=== PATIENT | female | born 1960 | race African-American/Black ===

== ENCOUNTER 2016-06-24 08:18 | Emergency (ER) | payer MEDICAID ==
[~2016-06-24] VITALS: Ht 157.5 cm; Wt 104.3 kg
[~2016-06-24 08:18] MED LIST: ALBUTEROL SULF8.5 GM INH; ANTIVERT25 MG ORAL; ASPIRIN EC81 MG ORAL; ASPIRIN325 MG ORAL; ATIVAN0.5 MG ORAL; AUGMENTIN 875-1 EAC1 ORAL; AZITHROMYCIN250 MG ORAL; CLARITIN-D 121 EAC1 ORAL; COLACE100 MG ORAL; CYCLOBENZAPRINE10 MG ORAL; DICLOFENAC SODI75 MG ORAL; IBUPROFEN600 MG ORAL; NAPROSYN250 M1 ORAL; NORCO 5-325 TA1 EACH ORAL; PERCOCET1 TAB ORAL; PREDNISONE20 M1 PO; PREDNISONE5 MG ORAL; VICODIN 5-3001 EACH ORAL
[2016-06-24] MEDS ORDERED: CEPHALEXIN500 MG ORAL (08:40)
--- NOTE | 2016-06-24 08:43 | Emergency Room Report ---
History of Present Illness General Chief Complaint: Flu Like Symptoms Source: Patient Present Illness HPI Patient is a 56-year-old female presented after having increased right-sided facial swelling and pain. The patient recently been sick with an upper respiratory infection and subsequently developed increased pain and swelling to the right side of her face anterior to her right ear. The patient had acute onset of symptoms Allergies: Coded Allergies: PROCHLORPERAZINE (Verified Allergy, Unknown, 08/04/14) Patient History Reviewed Nursing Documentation: PMH: Agreed, PSxH: Agreed Nursing Documentation-PMH Hx Asthma: Yes Hx Cancer: No Hx Gastrointestinal Problems: Yes - HEMMORROIDS Review of Systems All Other Systems: negative except mentioned in HPI Physical Exam Vital Signs Date Time Temp Pulse Resp B/P Pulse Ox O2 Delivery O2 Flow Rate FiO2 06/24/16 08:22 99.1 81 16 127/82 99 Room Air Sp02 EP Interpretation: reviewed, normal General Appearance: normal inspection, well appearing, no apparent distress, alert, GCS 15 Head: atraumatic ENT: normal ENT inspection, hearing grossly normal, normal voice, other - tenderness and swelling to right parotid gland, no lymphadenopathy noted Neck: normal inspection, full range of motion, supple, no bony tend Respiratory: normal inspection, lungs clear, normal breath sounds, no respiratory distress, no retraction, no wheezing Cardiovascular #1: regular rate, rhythm, no edema Gastrointestinal: normal inspection, normal bowel sounds, non tender, soft, no guarding, no hernia Genitourinary: no CVA tenderness Musculoskeletal: normal inspection, back normal, normal range of motion Neurologic: normal inspection, alert, oriented x3, responsive, 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 Differential diagnosis included was not limited to contusion, parotid gland infection, parotid gland stone, mumps, cellulitis among other. The patient is benign exam and appears to have parotitis. The patient was empirically started on Keflex. She was advised to followup in the next days with her doctor for recheck. Patient is advised to return if any worsening condition or if any changes in status that are concerning. Last Vital Signs Date Time Temp Pulse Resp B/P Pulse Ox O2 Delivery O2 Flow Rate FiO2 06/24/16 08:22 99.1 81 16 127/82 99 Room Air Status: improved Disposition: HOME, SELF-CARE Condition: Stable Scripts Cephalexin* (KEFLEX*) 500 Mg Capsule 500 MG ORAL EVERY 6 HOURS, #40 CAP Prov: Riccardo Phillips 06/24/16 Patient Instructions: Parotitis, [id number] Riccardo Phillips Jun 24, 2016 08:43
[2016-06-24 08:44] VITALS: BP 127/82
[2016-06-24] MEDS ORDERED: Cephalexin 500mg cap ORAL ONE (08:45)
[2016-06-24 08:50] VITALS: BP 127/82
== END 2016-06-24 08:54 | disposition home or self-care (01) ==
LOC: EMR 08:44
DX: K11.21 Acute sialoadenitis (principal); J45.909 Unspecified asthma, uncomplicated; Z88.8 Allergy status to other drugs, medicaments and biological substances
CPT/HCPCS: 99282

== ENCOUNTER 2016-11-15 20:16 | Emergency (ER) | payer MEDICAID ==
[~2016-11-15] VITALS: Ht 160 cm; Wt 104.3 kg
[~2016-11-15 20:16] MED LIST changes: +CEPHALEXIN500 MG ORAL
[2016-11-15 20:34] VITALS: BP 144/70
--- NOTE | 2016-11-15 20:42 | Emergency Room Report ---
History of Present Illness General Chief Complaint: Vertigo Source: Patient Present Illness HPI Patient is a 56-year-old female who presented after increased vertigo sensation. Patient had onset of symptoms approximately 3 days ago. The patient had gradual onset of spinning sensation. Patient has had several episodes similarly in the past. The patient had no complaints of ear pain or ringing in her ears. She denied any fever. She denied chest pain or shortness of breath. The symptoms were gradual onset. Patient reportedly is following a low salt diet. Allergies: Coded Allergies: PROCHLORPERAZINE (Verified Allergy, Unknown, 08/04/14) Patient History Past Medical History: see triage record Now: No Reviewed Nursing Documentation: PMH: Agreed, PSxH: Agreed Nursing Documentation-PMH Past Medical History: No History, Except For Hx Hypertension: Yes Hx Asthma: Yes Hx Cancer: No Hx Gastrointestinal Problems: Yes - HEMMORROIDS Review of Systems All Other Systems: negative except mentioned in HPI Physical Exam Vital Signs Date Time Temp Pulse Resp B/P Pulse Ox O2 Delivery O2 Flow Rate FiO2 11/15/16 20:31 97.5 71 13 144/70 100 Room Air Sp02 EP Interpretation: reviewed, normal General Appearance: normal inspection, well appearing, no apparent distress, alert, GCS 15 Head: atraumatic ENT: normal ENT inspection, hearing grossly normal, normal voice Neck: normal inspection, full range of motion, supple, no bony tend Respiratory: normal inspection, lungs clear, normal breath sounds, no respiratory distress, no retraction, no wheezing Cardiovascular #1: regular rate, rhythm, no edema Gastrointestinal: normal inspection, normal bowel sounds, non tender, soft, no guarding, no hernia Genitourinary: no CVA tenderness Musculoskeletal: normal inspection, back normal, normal range of motion Neurologic: normal inspection, alert, oriented x3, responsive, 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 Differential diagnosis included was not limited to CVA, vertebrobasilar insufficiency, myocardial infarction, benign positional vertigo, labyrinthitis, aspirin overdose among others. The patient has exam consistent with peripheral vertigo likely do to benign positional vertigo. EKG interpreted by me showed normal sinus rhythm with a rate of [address] or T wave changes. The patient was noted to have a negative stress nuclear test in 2013. Patient's benign exam and does not appear to require any further imaging or laboratory testing at this time. Patient was given oral meclizine. Patient had improvement in symptoms.The patient is advised to follow up with primary care doctor in 1-2 days. Patient is advised to return if any worsening condition or if any changes in status that are concerning. EKG Diagnostic Results Rate: normal Rhythm: NSR ST Segments: no acute changes Last Vital Signs Date Time Temp Pulse Resp B/P Pulse Ox O2 Delivery O2 Flow Rate FiO2 11/15/16 20:34 97.5 71 13 144/70 100 Room Air Status: improved Disposition: HOME, SELF-CARE Condition: Stable Scripts Meclizine Hcl* (MECLIZINE*) 25 Mg Tablet 25 MG ORAL THREE TIMES A DAY, #30 TAB Prov: Riccardo Phillips 11/15/16 Riccardo Phillips Nov 15, 2016 20:42
[2016-11-15 21:12] VITALS: BP 106/51
[2016-11-15] MEDS ORDERED: MECLIZINE HCL25 MG ORAL (22:22)
[2016-11-15 22:32] VITALS: BP 108/49
--- NOTE | 2016-11-18 01:09 | Cardiology Report ---
APPROVED REPORT EKG Measurement Heart [id number] Normal sinus rhythm Normal ECG
== END 2016-11-15 22:28 | disposition home or self-care (01) ==
LOC: EMR 20:48
DX: R42 Dizziness and giddiness (principal); I10 Essential (primary) hypertension; J45.909 Unspecified asthma, uncomplicated
CPT/HCPCS: 93005; 99283

== ENCOUNTER 2017-06-29 17:23 | Emergency (ER) | payer MEDICAID ==
[~2017-06-29] VITALS: Ht 157.5 cm; Wt 108.0 kg
[~2017-06-29 17:23] MED LIST changes: +MECLIZINE HCL25 MG ORAL
[2017-06-29 17:40] VITALS: BP 127/85
[2017-06-29] MEDS ORDERED: Methocarbamol 750mg tab ORAL ONE ×2 (18:05→18:15)
[2017-06-29] MEDS ORDERED: IBUPROFEN600 MG ORAL (18:07)
[2017-06-29] MEDS ORDERED: ROBAXIN-750750 MG PO (18:07)
--- NOTE | 2017-06-29 18:07 | Emergency Room Report ---
History of Present Illness General Chief Complaint: Pain Source: Patient Present Illness HPI 57-year-old female, no significant past medical history, presenting with 2 days of upper right-sided back pain. Patient states that pain started gradually, worse with movement. Has not taken anything for pain. No fever or chills no dysuria no hematuria. Has been eating and drinking normally. No history of IV drug abuse. No leg weakness or numbness. No urinary complaints Allergies: Coded Allergies: PROCHLORPERAZINE (Verified Allergy, Unknown, 08/04/14) Patient History Past Medical History: see triage record Past Surgical History: none Pertinent Family History: none Last Menstrual Period: N/A Reviewed Nursing Documentation: PMH: Agreed, PSxH: Agreed Nursing Documentation-PMH Past Medical History: No History, Except For Hx Cardiac Problems: No - HYPERCHOLESTEROLEMIA, VERTIGO Hx Hypertension: Yes Hx Asthma: Yes Hx Cancer: No Hx Gastrointestinal Problems: Yes - HEMMORROIDS Review of Systems All Other Systems: negative except mentioned in HPI Physical Exam Vital Signs Date Time Temp Pulse Resp B/P (MAP) Pulse Ox O2 Delivery O2 Flow Rate FiO2 06/29/17 17:40 88 20 127/85 100 Room Air Sp02 EP Interpretation: reviewed, normal General Appearance: normal inspection, well appearing, no apparent distress, alert, GCS 15, non-toxic Head: normocephalic, atraumatic Eyes: bilateral eye normal inspection, bilateral eye PERRL, bilateral eye EOMI ENT: normal ENT inspection, normal pharynx, normal voice, moist mucus membranes Neck: normal inspection, full range of motion, supple Respiratory: normal inspection, lungs clear, normal breath sounds, no respiratory distress, no retraction, no wheezing, speaking full sentences, chest symmetrical Cardiovascular #1: normal inspection, regular rate, rhythm, no edema, normal capillary refill Cardiovascular #2: 2+ radial (R), 2+ radial (L) Gastrointestinal: normal inspection, non tender, soft, non-distended, no guarding Musculoskeletal: other - R sided paraspinal tenderness tenderness thoracic area. no midline tenderness Neurologic: normal inspection, alert, oriented x3, responsive, motor strength/ tone normal, sensory intact, normal gait, speech normal Psychiatric: normal inspection, judgement/insight normal, memory normal Skin: normal inspection, normal color, no rash, warm/dry, well hydrated, normal turgor Medical Decision Making Diagnostic Impression: Primary Impression: Back pain ER Course 57-year-old female with right-sided back pain DDX: Likely musculoskeletal back pain vs. muscular strain vs. sciatica Lumbar fracture is unlikely given patients age, no midline tenderness, no history of trauma, and that patient is ambulatory. Therefore, at this time no imaging is indicated Serious diagnoses such as cord compression, epidural abscess is unlikely in this patient given the clinical scenario and abscess of neurological symptoms or findings. Patient appears nontoxic. Less concerned with UTI/pyelonephritis as patient not having any urinary symptoms fever chills. Plan: Motrin, robaxin, UA ER course: Patient has remained nontoxic appearing and ambulatory in the ED. Pain improved w/ medications Disposition: Patient will be discharged to home with prescription of motrin and robaxin. Patient cautioned of the effects of robaxin including possible impairment of physical or mental abilities. Patient was instructed to refrain from operating machinery or driving. Patient is also cautioned on the GI effects of motrin and to take sparingly. Patient verbalized understanding. Strict precautions discussed with patient on when to emergently return to the ED which includes severe/worsening back pain, leg weakness/numbness, urinary retention/incontinence, fever or chills, which may indicate severe illness. Patient is to follow up with their PMD within 5 days. Patient agrees with plan. Please note that this Emergency Department Report was dictated using [employer] waiter/waitress technology software, occasionally this can lead to erroneous entry secondary to interpretation by the dictation equipment. Laboratory Tests Test 06/29/17 17:30 Urine Color Yellow Urine Appearance Clear Urine pH 6 (4.5-8.0) Urine Specific Perry 1.015 (1.005-1.035) Urine Protein Negative (NEGATIVE) Urine Glucose (UA) Negative (NEGATIVE) Urine Ketones Negative (NEGATIVE) Urine Occult Blood 1+ (NEGATIVE) H Urine Nitrite Negative (NEGATIVE) Urine Bilirubin Negative (NEGATIVE) Urine Urobilinogen 4 MG/DL (0.0-1.0) H Urine Leukocyte Esterase 1+ (NEGATIVE) H Urine RBC 2-4 /HPF (0 - 2) H Urine WBC 0-2 /HPF (0 - 2) Urine Squamous Epithelial Cells Occasional /LPF Urine Bacteria None /HPF (NONE) Urine Mucus Few /LPF (NONE/OCC) H Last Vital Signs Date Time Temp Pulse Resp B/P (MAP) Pulse Ox O2 Delivery O2 Flow Rate FiO2 06/29/17 17:40 88 20 127/85 100 Room Air Disposition: HOME, SELF-CARE Condition: Improved Scripts Ibuprofen* (MOTRIN*) 600 Mg Tablet 600 MG ORAL Q8H Y for For Pain, #20 TAB 0 Refills Prov: Gena Harding M.D. 06/29/17 Methocarbamol* (ROBAXIN-750*) 750 Mg Tablet 750 MG PO QID, #28 TAB 0 Refills Prov: Gena Harding M.D. 06/29/17 Patient Instructions: Back Pain, Adult, [id number] Gena Harding M.D. Jun 29, 2017 18:07
[2017-06-29 18:09] LABS: APPEARANCE,URINE CLEAR; BILIRUBIN, URINE NEGATIVE (NEGATIVE); GLUCOSE, URINE (UA) NEGATIVE (NEGATIVE); KETONES,URINE NEGATIVE (NEGATIVE); LEUKOCYTE ESTERASE ,URINE 1+ (NEGATIVE); NITRITE,URINE NEGATIVE (NEGATIVE); PH,URINE 6 (4.5-8.0); PROTEIN,URINE NEGATIVE (NEGATIVE); UROBILINOGEN,URINE 4 MG/DL (0.0-1.0)
[2017-06-29 18:14] LABS: COLOR,URINE YELLOW
[2017-06-29 21:00] VITALS: BP 123/75
== END 2017-06-29 20:10 | disposition home or self-care (01) ==
LOC: EMR 17:52
DX: M54.9 Dorsalgia, unspecified (principal); I10 Essential (primary) hypertension; J45.909 Unspecified asthma, uncomplicated; E78.00 Pure hypercholesterolemia, unspecified
CPT/HCPCS: 81003; 99284

== ENCOUNTER 2018-02-07 15:55 | Emergency (ER) | payer MEDICAID ==
[~2018-02-07] VITALS: Ht 157.5 cm; Wt 106.6 kg
[~2018-02-07 15:55] MED LIST changes: +ROBAXIN-750750 MG PO
[2018-02-07] MEDS ORDERED: BACTRIM DS TAB1 EAC1 ORAL (16:21)
[2018-02-07] MEDS ORDERED: CLARITIN10 MG ORAL (16:21)
[2018-02-07] MEDS ORDERED: BACITRACIN-P28.35 GM TP (16:21)
[2018-02-07] MEDS ORDERED: HYDROCORTISONE30 G2 TP (16:21)
--- NOTE | 2018-02-07 16:22 | Emergency Room Report ---
History of Present Illness General Chief Complaint: Skin Rash/Abscess Source: Patient Present Illness HPI 57-year-old female patient presents ER complaining of bug bites on her left lower leg. States that the bug bites have been present for 2 days. Reports extremely pruritic. States that she is putting alcohol on them to help with symptoms. Reports that has not taken any other medications. Denies fever, chest pain, shortness of breath. Does not know tetanus vaccination status. Denies history of diabetes. denies contacts with similar symptoms. Allergies: Coded Allergies: PROCHLORPERAZINE (Verified Allergy, Unknown, 02/07/18) Patient History Past Medical History: see triage record Now: No Reviewed Nursing Documentation: PMH: Agreed; PSxH: Agreed Nursing Documentation-PMH Hx Cardiac Problems: No - HYPERCHOLESTEROLEMIA, VERTIGO Hx Hypertension: Yes Hx Asthma: Yes Hx Cancer: No Hx Gastrointestinal Problems: Yes - HEMMORROIDS Review of Systems All Other Systems: negative except mentioned in HPI Physical Exam Vital Signs Date Time Temp Pulse Resp B/P (MAP) Pulse Ox O2 Delivery O2 Flow Rate FiO2 02/07/18 16:00 98.7 84 16 130/73 95 Room Air 98.8 Sp02 EP Interpretation: reviewed, normal General Appearance: well appearing, no apparent distress, alert, GCS 15, non- toxic Head: normocephalic, atraumatic Eyes: bilateral eye normal inspection, bilateral eye PERRL ENT: hearing grossly normal, normal pharynx, no angioedema, normal voice, uvula midline, moist mucus membranes Neck: full range of motion Respiratory: lungs clear, normal breath sounds, no rhonchi, no respiratory distress, no accessory muscle use, no wheezing, speaking full sentences Cardiovascular #1: regular rate, rhythm, no edema Musculoskeletal: back normal, digits/nails normal, gait/station normal, normal range of motion, non-tender Psychiatric: mood/affect normal Skin: other - multiple erythematous macules 1-2 cm in size with excoriations and surrounding erythema, no surrounding eedema, no defined borders, no induration or fluctuance, no erythema, no target lesion Medical Decision Making PA Attestation Dr. Cruz is my supervising Physician whom patient management has been discussed with. Diagnostic Impression: Primary Impression: Bug bite ER Course Pt. presents to the ED c/o bug bite. Ddx considered but are not limited to atopic dermatitis, bug bite, urticaria, allergic reaction. Vital signs: are WNL, pt. is afebrile ER COURSE: Provided patient with TDAP In ER. Provide with hydroxyzine for itching symptoms in ER. physical exam consistent with possible bug bites, with localized reaction. Will provide patient with topical and oral medications to take home. Will provider patient with abx to cover for possible infection. Do not scratch, apply cool compresses to affected area. Followup with PCP and request referral to derm. provide patient with derm referrals. Call to schedule appointment. Wound check in 2-3 days, f/u with PCP or return to ER for wound check. DISCHARGE: -Rx given for Claritin -Rx given for hydrocortisone cream. Do not apply to face or skin creases. -Rx provided for Bacitracin -Rx provided for Bactrim At this time pt. is stable for d/c to home. Patient resting comfortably, in no acute distress, nontoxic appearing. Care plan and follow up instructions have been discussed with the patient prior to discharge. Patient provided with printed patient care instructions, and any necessary prescriptions. Patient instructed to follow-up with primary care provider in 3 - 5 days. Patient questions asked and answered. Patient reports understanding and agreement to treatment plan. ER precautions given. Patient instructed to return to ER immediately for any new or worsening of symptoms including but not limited to increasing SOB, persistent fever. - Please note that this Emergency Department Report was dictated using [employer] technology software, occasionally this can lead to erroneous entry secondary to interpretation by the dictation equipment. Last Vital Signs Date Time Temp Pulse Resp B/P (MAP) Pulse Ox O2 Delivery O2 Flow Rate FiO2 02/07/18 16:00 98.7 84 16 130/73 95 Room Air 98.8 Disposition: HOME, SELF-CARE Condition: Stable Scripts Hydrocortisone (Hydrocortisone Cream 2.5%) Y Cream.appl 1 APPLIC TP BID, #28 GM Prov: Jasper Andrews 02/07/18 Loratadine (CLARITIN) 10 Mg Tablet 10 MG ORAL DAILY, #24 TAB Prov: Jasper Andrews 02/07/18 Trimethoprim/Sulfamethoxazole 160/800* (BACTRIM DS TABLET*) 1 Each Tablet 1 TAB ORAL TWICE A DAY for 7 Days, #14 TAB Prov: Jasper Andrews 02/07/18 Bacitracin/Polymyxin B Sulfate (BACITRACIN-POLYMYXIN OINTMENT) 28.35 Gm Oint...g. 1 APPLIC TP BID, #28 GM Prov: Jasper Andrews 02/07/18 Patient Instructions: Insect Bite, [id number] Additional Instructions: Followup with primary care provider in 3 -5 days. Request referral to dermatology. Do not scratch or itch. Apply cool compresses to affected area. Take medications as directed. Do not apply topical steroid medication to face or skin creases. SE Benadryl drowsiness, do not take prior to drinking, driving , operating heavy machinery. Patient questions asked and answered. ER precautions given, patient instructed to return to ER immediately for any new or worsening of symptoms. [facility] [place] [facility] Jasper Andrews Feb 07, 2018 16:22
[2018-02-07 16:26] VITALS: BP 130/73
[2018-02-07] MEDS ORDERED: Tetanus/Diptheria/Pertussis Vaccine 0.5ml Syr IM ONE (16:30)
== END 2018-02-07 16:26 | disposition home or self-care (01) ==
LOC: EMR 16:15
DX: S80.862A Insect bite (nonvenomous), left lower leg, initial encounter (principal); W57.XXXA Bitten or stung by nonvenomous insect and other nonvenomous arthropods, initial encounter; Y92.89 Other specified places as the place of occurrence of the external cause; Z23 Encounter for immunization; I10 Essential (primary) hypertension; J45.909 Unspecified asthma, uncomplicated; E78.00 Pure hypercholesterolemia, unspecified
CPT/HCPCS: 90471; 90715; 99283

== ENCOUNTER 2018-05-26 23:58 | Emergency (ER) | payer MEDICAID ==
[~2018-05-26] VITALS: Ht 157.5 cm; Wt 106.6 kg
[~2018-05-26 23:58] MED LIST changes: +BACITRACIN-P28.35 GM TP; +BACTRIM DS TAB1 EAC1 ORAL; +CLARITIN10 MG ORAL; +HYDROCORTISONE30 G2 TP
[2018-05-27 00:05] VITALS: BP 193/99
[2018-05-27] MEDS ORDERED: Meclizine 25mg tab ORAL ONE ×2 (00:15→01:45)
[2018-05-27] MEDS ORDERED: MECLIZINE HCL25 MG ORAL (03:07)
[2018-05-27] MEDS ORDERED: ZOFRAN4 MG ORAL (03:07)
--- NOTE | 2018-05-27 03:28 | Emergency Room Report ---
History of Present Illness General Chief Complaint: Vertigo Source: Patient Present Illness HPI Patient 58-year-old female presented after increased vertigo sensation. Patient gradual onset of symptoms. She reports having increased nausea is also with abdominal queasiness. She denies any erika abdominal pain. She had been having normal bowel movements. She denies episodes of diarrhea. She reports having prior history of vertigo. She appears been taking meclizine with improvement.The patient prior history of hypertension. She reports having intermittent episodes of headaches. Allergies: Coded Allergies: PROCHLORPERAZINE (Verified Allergy, Unknown, 02/07/18) Patient History Past Medical History: see triage record Last Menstrual Period: n/a Now: No : 6 Para: 6 Reviewed Nursing Documentation: PMH: Agreed; PSxH: Agreed Nursing Documentation-PMH Past Medical History: No History, Except For Hx Cardiac Problems: No - HYPERCHOLESTEROLEMIA, VERTIGO Hx Hypertension: Yes Hx Asthma: Yes Hx Cancer: No Hx Gastrointestinal Problems: Yes - HEMMORROIDS Review of Systems All Other Systems: negative except mentioned in HPI Physical Exam Vital Signs Date Time Temp Pulse Resp B/P (MAP) Pulse Ox O2 Delivery O2 Flow Rate FiO2 05/27/18 00:01 98.1 70 20 159/85 97 Room Air Sp02 EP Interpretation: reviewed, normal General Appearance: normal inspection, well appearing, no apparent distress, alert, GCS 15, obese Head: atraumatic ENT: normal ENT inspection, hearing grossly normal, normal voice Neck: normal inspection, full range of motion, supple, no bony tend Respiratory: normal inspection, lungs clear, normal breath sounds, no respiratory distress, no retraction, no wheezing Cardiovascular #1: regular rate, rhythm, no edema Gastrointestinal: normal inspection, normal bowel sounds, non tender, soft, no guarding, no hernia Genitourinary: no CVA tenderness Musculoskeletal: normal inspection, back normal, normal range of motion Neurologic: normal inspection, alert, oriented x3, responsive, 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 Differential diagnosis included was not limited to CVA, vertebrobasilar insufficiency, myocardial infarction, benign positional vertigo, labyrinthitis, aspirin overdose among others. The patient has exam consistent with peripheral vertigo likely do to benign positional vertigo. Patient was given oral meclizine. Patient had improvement in symptoms.Because of complexity of patient's case laboratory testing and imaging studies were ordered. CT the head read by radiology showed no acute intracranial hemorrhage mass effect or midline shiftThe patient was noted to be persistently vomiting. She was given IV Zofran and IV fluids.The patient was noted to have a previous hospitalization which he was seen by neurology. The patient was noted to have the positional vertigo history. The patient's laboratory testing was unremarkable. Patient started on IV fluidsThe EKG interpreted by me showed normal sinus rhythm with a rate of [address] or T wave changes.The patient was noted to have improvement in her symptoms after IV hydration. Patient is advised to return if she began having any focal neurologic deficits. Patient was given prescription for meclizine as well as Zofran.The patient is advised to follow up with primary care doctor in 1-2 days. Patient is advised to return if any worsening condition or if any changes in status that are concerning. This report is dictated with [employer] emergency dispatcher software which may occasionally lead to discrepancies related to use of this software. Labs Test 05/27/18 03:35 05/27/18 04:36 White Blood Count 6.1 K/UL (4.8-10.8) Red Blood Count 4.13 M/UL (4.20-5.40) Hemoglobin 10.9 G/DL (12.0-16.0) Hematocrit 33.5 % (37.0-47.0) Mean Corpuscular Volume 81 FL (80-99) Mean Corpuscular Hemoglobin 26.3 PG (27.0-31.0) Mean Corpuscular Hemoglobin Concent 32.4 G/DL (32.0-36.0) Red Cell Distribution Width 12.9 % (11.6-14.8) Platelet Count 262 K/UL (150-450) Mean Platelet Volume 6.7 FL (6.5-10.1) Neutrophils (%) (Auto) 68.3 % (45.0-75.0) Lymphocytes (%) (Auto) 25.9 % (20.0-45.0) Monocytes (%) (Auto) 4.7 % (1.0-10.0) Eosinophils (%) (Auto) 0.1 % (0.0-3.0) Basophils (%) (Auto) 1.0 % (0.0-2.0) Sodium Level 141 MMOL/L (136-145) Potassium Level 3.9 MMOL/L (3.5-5.1) Chloride Level 106 MMOL/L (98-107) Carbon Dioxide Level 29 MMOL/L (21-32) Anion Gap 6 mmol/L (5-15) Blood Urea Nitrogen 15 mg/dL (7-18) Creatinine 0.8 MG/DL (0.55-1.30) Estimat Glomerular Filtration Rate > 60 mL/min (>60) Glucose Level 139 MG/DL (74-106) Calcium Level 8.5 MG/DL (8.5-10.1) Total Bilirubin 1.0 MG/DL (0.2-1.0) Aspartate Amino Transf (AST/SGOT) 16 U/L (15-37) Alanine Aminotransferase (ALT/SGPT) 24 U/L (12-78) Alkaline Phosphatase 73 U/L (46-116) Troponin I 0.000 ng/mL (0.000-0.056) Total Protein 7.9 G/DL (6.4-8.2) Albumin 4.0 G/DL (3.4-5.0) Globulin 3.9 g/dL Albumin/Globulin Ratio 1.0 (1.0-2.7) Lipase 90 U/L (73-393) Last Vital Signs Date Time Temp Pulse Resp B/P (MAP) Pulse Ox O2 Delivery O2 Flow Rate FiO2 05/27/18 00:05 98.1 93 18 193/99 99 Room Air Status: improved Disposition: HOME, SELF-CARE Condition: Stable Scripts Ferrous Sulfate* (FERROUS SULFATE*) 325 Mg Tablet 325 MG ORAL DAILY, #30 TAB 0 Refills Prov: Riccardo Phillips MD 05/27/18 Ondansetron (Zofran) 4 Mg Tablet 4 MG ORAL Q6H PRN for Nausea & Vomiting, #30 TAB 0 Refills Prov: Riccardo Phillips MD 05/27/18 Meclizine Hcl* (MECLIZINE*) 25 Mg Tablet 25 MG ORAL THREE TIMES A DAY, #20 TAB Prov: Riccardo Phillips MD 05/27/18 Referrals: NON PHYSICIAN (PCP) Patient Instructions: Vertigo Riccardo Phillips MD May 27, 2018 03:28
[2018-05-27] MEDS ORDERED: D5NS 1,000 ML IV ONE (03:30)
[2018-05-27 03:50] LABS: EOSINOPHILS % (AUTO) 0.1 % (0.0-3.0); HEMATOCRIT 33.5 % (37.0-47.0); HEMOGLOBIN 10.9 G/DL (12.0-16.0); LYMPHOCYTES % (AUTO) 25.9 % (20.0-45.0); MEAN CORPUSCULAR VOLUME 81 FL (80-99); MONOCYTES % (AUTO) 4.7 % (1.0-10.0); NEUTROPHILS % (AUTO) 68.3 % (45.0-75.0); PLATELET COUNT 262 K/UL (150-450); RED BLOOD COUNT 4.13 M/UL (4.20-5.40); RED CELL DISTRIBUTION WIDTH 12.9 % (11.6-14.8); WHITE BLOOD COUNT 6.1 K/UL (4.8-10.8)
[2018-05-27 04:02] LABS: ANION GAP 6 mmol/L (5-15); BLOOD UREA NITROGEN 15 mg/dL (7-18); CALCIUM 8.5 MG/DL (8.5-10.1); CARBON DIOXIDE 29 MMOL/L (21-32); CHLORIDE 106 MMOL/L (98-107); CREATININE 0.8 MG/DL (0.55-1.30); POTASSIUM 3.9 MMOL/L (3.5-5.1); SODIUM 141 MMOL/L (136-145)
[2018-05-27 04:06] LABS: ALANINE AMINOTRANSFERASE 24 U/L (12-78); ALKALINE PHOSPHATASE 73 U/L (46-116); ASPARTATE AMINO TRANSFERASE 16 U/L (15-37)
[2018-05-27 04:56] LABS: APPEARANCE,URINE CLEAR; BILIRUBIN, URINE NEGATIVE (NEGATIVE); COLOR,URINE PALE YELLOW; GLUCOSE, URINE (UA) NEGATIVE (NEGATIVE); KETONES,URINE NEGATIVE (NEGATIVE); LEUKOCYTE ESTERASE ,URINE 1+ (NEGATIVE); NITRITE,URINE NEGATIVE (NEGATIVE); PH,URINE 7 (4.5-8.0); PROTEIN,URINE NEGATIVE (NEGATIVE); UROBILINOGEN,URINE 1 MG/DL (0.0-1.0)
[2018-05-27] MEDS ORDERED: FERROUS SULFAT325 MG ORAL (05:19)
[2018-05-27 05:49] VITALS: BP 148/80
--- NOTE | 2018-05-27 09:50 | Diagnostic Imaging Report ---
Indication: Dizziness Technique: Contiguous 5 mm thick transaxial imaging of the head obtained in a Siemens Sensation [address] scanner. Soft tissue and bone windows generated. Automatic Exposure Control was utilized. Total Dose length Product (DLP): 1256.[address] Dose Index Volume (CTDIvol): 70.38 mGy Comparison: 08/04/2014 Findings: The size and configuration of the cortical sulci, basal cisterns, and ventricles are within normal limits for age. There is a cavum septum pellucidum. There is no mass effect, midline shift, or edema identified. There is no evidence of acute hemorrhage or abnormal intra-axial or extra-axial fluid collections. The bones and soft tissues are unremarkable. Impression: No mass effect, edema or acute bleed. The CT scanner at [facility] is accredited by the [employer] and the scans are performed using dose optimization techniques as appropriate to a performed exam including Automatic Exposure control.
--- NOTE | 2018-05-27 15:27 | Cardiology Report ---
APPROVED REPORT EKG Measurement Heart [id number] Normal sinus rhythm Normal ECG
== END 2018-05-27 05:49 | disposition home or self-care (01) ==
LOC: EMR 05-27 00:17
DX: H81.10 Benign paroxysmal vertigo, unspecified ear (principal); I10 Essential (primary) hypertension; E78.00 Pure hypercholesterolemia, unspecified; J45.909 Unspecified asthma, uncomplicated
CPT/HCPCS: 36415; 70450; 80053; 81003; 82962; 83690; 84484; 85025; 93005; 96365; 96375; 99284; J2405

== ENCOUNTER 2019-07-02 18:37 | Emergency (ER) | payer MEDICAID ==
[~2019-07-02] VITALS: Ht 157.5 cm; Wt 108.9 kg
[~2019-07-02 18:37] MED LIST changes: +ASPIRIN81 MG ORAL; +BISACODYL5 MG ORAL; +FERROUS SULFAT325 MG ORAL; +GABAPENTIN100 MG ORAL; +TRAMADOL HCL50 MG ORAL; +ZOFRAN4 MG ORAL; +unknown BP med
[2019-07-02 18:42] VITALS: BP 141/77
--- NOTE | 2019-07-02 18:55 | Emergency Room Report ---
History of Present Illness General Chief Complaint: Flu Like Symptoms Source: Patient Present Illness HPI 59-year-old female with history of prediabetes, controlled here complaining of 2 days of 10 out of 10 sore throat, congestion and bilateral ear pain. Complains of a minor cough. Has not taken medication for symptom relief. Denies headache and dizziness, chest pain, shortness of breath, palpitation, abdominal pain, nausea vomiting. Denies recent travel and sick contact. Allergies: Coded Allergies: PROCHLORPERAZINE (Verified Allergy, Unknown, 02/07/18) Patient History Past Medical History: see triage record Past Surgical History: unable to obtain Pertinent Family History: none Now: No Immunizations: UTD Reviewed Nursing Documentation: PMH: Agreed; PSxH: Agreed Nursing Documentation-PMH Past Medical History: No History, Except For Hx Cardiac Problems: No - HYPERCHOLESTEROLEMIA, VERTIGO Hx Hypertension: Yes Hx Asthma: Yes Hx Cancer: No Hx Gastrointestinal Problems: Yes - HEMMORROIDS Review of Systems All Other Systems: negative except mentioned in HPI Physical Exam Vital Signs Date Time Temp Pulse Resp B/P (MAP) Pulse Ox O2 Delivery O2 Flow Rate FiO2 07/02/19 18:42 98.2 77 19 141/77 (98) 99 Room Air Sp02 EP Interpretation: reviewed, normal General Appearance: no apparent distress, alert, GCS 15, non-toxic Head: normocephalic, atraumatic Eyes: bilateral eye normal inspection, bilateral eye PERRL ENT: EOM grossly intact, uvula midline, nasal congestion, tonsillar swelling, pharyngeal erythema, tonsillar exudate Neck: full range of motion, supple, thyroid normal, no meningismus, no bony tend, other - anterior cervical lymphadenopathy Respiratory: chest non-tender, lungs clear, normal breath sounds, no rhonchi, no retraction, no wheezing, speaking full sentences Cardiovascular #1: regular rate, rhythm, no edema, no murmur Gastrointestinal: non tender, soft Genitourinary: no CVA tenderness Musculoskeletal: back normal Neurologic: alert, motor strength/tone normal, oriented x3, sensory intact, responsive, speech normal Psychiatric: judgement/insight normal, memory normal, mood/affect normal, no suicidal/homicidal ideation Lymphatic: adenopathy - anterior cervical lymphadenopathy Medical Decision Making PA Attestation All my diagnosis and treatment plans were reviewed ad discussed with my supervising physician Dr. Salas Diagnostic Impression: Primary Impression: Strep pharyngitis ER Course 59-year-old female with history of prediabetes, controlled here complaining of 2 days of 10 out of 10 sore throat, congestion and bilateral ear pain. Complains of a minor cough. Has not taken medication for symptom relief. Denies headache and dizziness, chest pain, shortness of breath, palpitation, abdominal pain, nausea vomiting. Denies recent travel and sick contact. Ddx considered but are not limited to: strep pharyngitis, URI, tonsillitis, peritonsillar abscess, influenza Vital signs: are WNL, pt. is afebrile H&PE are most consistent with: Strep pharyngitis ORDERS: Augmentin, guaifenesin, ibuprofen ED INTERVENTIONS: None required at this time. DISCHARGE: At this time pt. is stable for d/c to home. Will provide printed patient care instructions, and any necessary prescriptions. Care plan and follow up instructions have been discussed with the patient prior to discharge. Take medication as directed, follow-up with your primary care provider, if worsening symptoms return to emergency Last Vital Signs Date Time Temp Pulse Resp B/P (MAP) Pulse Ox O2 Delivery O2 Flow Rate FiO2 07/02/19 18:42 98.2 77 19 141/77 (98) 99 Room Air Disposition: HOME, SELF-CARE Condition: Stable Scripts Guaifenesin* (GUAIFENESIN*) 100 Mg/5 Ml Liquid 5 ML ORAL Q6H, #120 ML 0 Refills Prov: Cindy Pickett 07/02/19 Ibuprofen* (MOTRIN*) 400 Mg Tablet 400 MG ORAL Q6H, #30 TAB 0 Refills Prov: Cindy Pickett 07/02/19 Amoxicillin/Potassium Clav 875-125* (AUGMENTIN 875-125 TABLET*) 1 Each Tablet 1 TAB ORAL TWICE A DAY for 10 Days, #20 TAB Prov: Cindy Pickett 07/02/19 Patient Instructions: Strep Throat, [id number] Additional Instructions: Take medication as directed, follow-up with your primary care provider, avoid spicy and greasy food. If worsening symptoms return to emergency room Cindy Pickett Jul 02, 2019 18:55
[2019-07-02] MEDS ORDERED: AUGMENTIN 875-1 EAC1 ORAL (18:56)
[2019-07-02] MEDS ORDERED: GUAIFENESI100 MG/5 M ORAL (18:56)
[2019-07-02] MEDS ORDERED: IBUPROFEN400 MG ORAL (18:56)
--- NOTE | 2019-07-02 19:04 | NUR ---
ED Nurse Note: Patient is being discharged from medical care. D/C instruction/prescription given to patient. All questions were answered. Ambulated out with steady gait with all his belongings.
== END 2019-07-02 19:02 | disposition home or self-care (01) ==
LOC: EMR 19:00
DX: J02.0 Streptococcal pharyngitis (principal); E78.00 Pure hypercholesterolemia, unspecified; I10 Essential (primary) hypertension; J45.909 Unspecified asthma, uncomplicated; K64.9 Unspecified hemorrhoids; Z88.8 Allergy status to other drugs, medicaments and biological substances
CPT/HCPCS: 99282

== ENCOUNTER 2020-04-30 17:08 | Emergency (ER) | payer MEDICAID ==
[~2020-04-30] VITALS: Ht 160 cm; Wt 111.1 kg
[~2020-04-30 17:08] MED LIST changes: +GUAIFENESI100 MG/5 M ORAL; +IBUPROFEN400 MG ORAL
[2020-04-30 17:19] VITALS: BP 117/62
--- NOTE | 2020-04-30 17:29 | NUR ---
ED Nurse Note: Patient from home and walked in due to left lateral rib pain S/P mechanical fall last night. Pt states it hurts more when she breathes. No apparent fracture or bruising. AAO x4, ambulatory with non labored breathing.
[2020-04-30] MEDS ORDERED: Ketorolac 30mg Inj IM ONE (17:45)
--- NOTE | 2020-04-30 17:49 | Emergency Room Report ---
History of Present Illness General Chief Complaint: Multiple Trauma/Fall Present Illness HPI 60-year-old female who. Significant past medical history medication currently here. Patient reports that she fell on her left chest yesterday. Denies loss of consciousness and headache. Rates the pain left lower ribs 7-10 with radiation to left flank and complains of minimal shortness of breath when laying down. Patient vital signs are within normal limits. No ecchymosis noted. Denies any abdominal pain, hematuria, nausea vomiting. Denies taking any blood thinners at this time. Denies all other injuries. Allergies: Coded Allergies: PROCHLORPERAZINE (Verified Allergy, Unknown, 02/07/18) COVID-19 Screening Contact w/high risk pt: No Experienced COVID-19 symptoms?: No COVID-19 Testing performed HEAD TRIMMER: No Patient History Past Medical History: see triage record Past Surgical History: none Pertinent Family History: none Now: No Immunizations: UTD Reviewed Nursing Documentation: PMH: Agreed; PSxH: Agreed Nursing Documentation-PMH Hx Cardiac Problems: No - HYPERCHOLESTEROLEMIA, VERTIGO Hx Hypertension: Yes Hx Asthma: Yes Hx Cancer: No Hx Gastrointestinal Problems: Yes - HEMMORROIDS Review of Systems All Other Systems: negative except mentioned in HPI Physical Exam Vital Signs Date Time Temp Pulse Resp B/P (MAP) Pulse Ox O2 Delivery O2 Flow Rate FiO2 04/30/20 17:19 99.0 75 20 117/62 (80) 94 Room Air Sp02 EP Interpretation: reviewed, normal General Appearance: no apparent distress, alert, GCS 15, non-toxic Head: normocephalic, atraumatic Eyes: bilateral eye normal inspection, bilateral eye PERRL ENT: hearing grossly normal, normal pharynx, no angioedema, normal voice Neck: full range of motion, supple, supple/symm/no masses Respiratory: chest non-tender, lungs clear, normal breath sounds, no rhonchi, no respiratory distress, no retraction, no wheezing, speaking full sentences Cardiovascular #1: regular rate, rhythm, no edema Cardiovascular #2: 2+ carotid (R), 2+ carotid (L), 2+ radial (R), 2+ radial (L), 2+ dorsalis pedis (R), 2+ dorsalis pedis (L) Gastrointestinal: normal bowel sounds, non tender, soft, non-distended, no guarding, no rebound Rectal: deferred Musculoskeletal: back normal, tender - left 11-12th rib Neurologic: alert, motor strength/tone normal, oriented x3, sensory intact, responsive, speech normal Psychiatric: judgement/insight normal, memory normal, mood/affect normal, no suicidal/homicidal ideation Skin: no rash Lymphatic: no adenopathy Medical Decision Making PA Attestation All diagnoses and treatment plans were reviewed and discussed with my supervising physician Dr. Kimbrough Diagnostic Impression: Primary Impression: Rib contusion ER Course 60-year-old female who. Significant past medical history medication currently here. Patient reports that she fell on her left chest yesterday. Denies loss of consciousness and headache. Rates the pain left lower ribs 7-10 with radiation to left flank and complains of minimal shortness of breath when laying down. Patient vital signs are within normal limits. No ecchymosis noted. Denies any abdominal pain, hematuria, nausea vomiting. Denies taking any blood thinners at this time. Denies all other injuries. Ddx considered but are not limited to: Pneumothorax,, rib fracture, chest contusion Vital signs: are WNL, pt. is afebrile H&PE are most consistent with ORDERS: CT chest no contrast ED INTERVENTIONS: toradol IM DISCHARGE: At this time pt. is stable for d/c to home. Will provide printed patient care instructions, and any necessary prescriptions. Care plan and follow up instructions have been discussed with the patient prior to discharge. CT/MRI/US Diagnostic Results CT/MRI/US Diagnostic Results : Imaging Test Ordered: chest CT no contrast Impression COMPARISON: No relevant prior studies available. FINDINGS: Lungs:Unremarkable. No mass. No consolidation. Pleural space:Unremarkable. No pneumothorax. No significant effusion. Heart:Unremarkable. No cardiomegaly. No significant pericardial effusion. Bones/joints:Degenerative changes of the spine. No acute fracture. No dislocation. Soft tissues:Unremarkable. Vasculature:Unremarkable. No thoracic aortic aneurysm. Lymph nodes:Unremarkable. No enlarged lymph nodes. IMPRESSION: No acute trauma related pathology. Last Vital Signs Date Time Temp Pulse Resp B/P (MAP) Pulse Ox O2 Delivery O2 Flow Rate FiO2 04/30/20 17:25 75 20 Room Air 04/30/20 17:19 99.0 117/62 94 Disposition: HOME, SELF-CARE Condition: Stable Patient Instructions: Rib Contusion Additional Instructions: Take medication as directed, follow-up primary care provider worsening symptoms return to the emergency room Cindy Pickett Apr 30, 2020 17:49
--- NOTE | 2020-04-30 18:50 | Diagnostic Imaging Report ---
EXAM: CT Chest Without Intravenous Contrast CLINICAL HISTORY: TRAUMA TECHNIQUE: Axial computed tomography images of the chest without intravenous contrast. CTDI is 15.4 mGy and DLP is 571.6 mGy-cm. One or more of the following dose reduction techniques were used: automated exposure control, adjustment of the mA and/or kV according to patient size, use of iterative reconstruction technique. COMPARISON: No relevant prior studies available. FINDINGS: Lungs: Unremarkable. No mass. No consolidation. Pleural space: Unremarkable. No pneumothorax. No significant effusion. Heart: Unremarkable. No cardiomegaly. No significant pericardial effusion. Bones/joints: Degenerative changes of the spine. No acute fracture. No dislocation. Soft tissues: Unremarkable. Vasculature: Unremarkable. No thoracic aortic aneurysm. Lymph nodes: Unremarkable. No enlarged lymph nodes. IMPRESSION: No acute trauma related pathology.
[2020-04-30] MEDS ORDERED: LIDODERM700 M1 TOPIC (18:58)
[2020-04-30] MEDS ORDERED: ACETAMINOPHEN500 M3 ORAL (18:58)
--- NOTE | 2020-04-30 19:00 | NUR ---
HAND-OFF: Report given to Chey MARTINEZ.
--- NOTE | 2020-04-30 19:00 | NUR ---
ED Nurse Note: Report received from JUAN Rowan.
[2020-04-30 19:10] VITALS: BP 120/66
--- NOTE | 2020-04-30 19:10 | NUR ---
ER DISCHARGE NOTE: Patient is cleared to be discharged per ERMD, pt is aox4, on room air, with stable vital signs. pt was given dc and prescription instructions, pt was able to verbalize understanding, pt id band removed. pt is able to ambulate with steady gait. pt took all belongings.
== END 2020-04-30 19:10 | disposition home or self-care (01) ==
LOC: EMR 18:03
DX: S20.212A Contusion of left front wall of thorax, initial encounter (principal); I10 Essential (primary) hypertension; E78.00 Pure hypercholesterolemia, unspecified; J45.909 Unspecified asthma, uncomplicated; W01.0XXA Fall on same level from slipping, tripping and stumbling without subsequent striking against object, initial encounter; Y93.9 Activity, unspecified; Y92.9 Unspecified place or not applicable; Z88.8 Allergy status to other drugs, medicaments and biological substances
CPT/HCPCS: 71250; 96372; J1885; Z7502; 99284